=== PATIENT | male | born 1960 | race Caucasian/White ===

== ENCOUNTER 2020-10-04 07:23 | Day surgery (SDC) | payer BC ==
[2020-10-04] MEDS ORDERED: Midazolam 1 MG/ML 2 ML SDV ONE (07:36)
[2020-10-04] MEDS ORDERED: Propofol 200 MG/20 ML SDV ONE ×2 (07:36→08:42)
[2020-10-04] MEDS ORDERED: fentaNYL 100 MCG/2 ML SDV ONE (07:36)
[2020-10-04] MEDS: Sodium Chloride 0.9% 1,000 ML IV SCH (07:53)
--- NOTE | 2020-10-04 13:58 | OR ---
DATE OF PROCEDURE: 10/04/2020 SURGEON: Kailash Alicea MD PROCEDURE: Colonoscopy. FINDINGS: Ascending colon polyp approximately 5 mm, completely removed using cold biopsy forceps. COMPLICATIONS: None. FIELD PRODUCER: None. ANESTHESIA: MAC. PREOPERATIVE DIAGNOSIS: Screening colonoscopy. POSTOPERATIVE DIAGNOSIS: Screening colonoscopy. RISKS: Risks, benefits, alternatives, and limitations including, but not limited to infection, bleeding, perforation, false positives and false negatives were explained to the patient and he wished to proceed. PROCEDURE IN DETAIL: The patient was placed in left lateral decubitus position. Digital rectal exam was performed without abnormality. Scope was introduced and advanced atraumatically to the ileocecal valve. A photo was taken. As the scope was brought back from the ascending, transverse, descending colon, and retroflexed, no evidence of old or new blood. No masses. The patient had a small 5 mm polypoid-type lesion, which was completely removed using cold biopsy forceps. No abnormalities on retroflexion. The patient tolerated the procedure well. Prep was acceptable, approximately 90% of the luminal surface could be seen. Greater than 8 minutes was spent removing the scope. Kailash Alicea MD /[id number]
== END 2020-10-04 10:25 | disposition home or self-care (01) ==
LOC: JP.SDS 07:23
PROVIDERS: ATTEND Surgery
DX: Z12.11 Encounter for screening for malignant neoplasm of colon (principal); D12.2 Benign neoplasm of ascending colon; Z86.010 Personal history of colon polyps
CPT/HCPCS: 45380; 88305; J2250; J2704; J3010; J7030